=== PATIENT | female | born 2000 | race Caucasian/White ===

== ENCOUNTER 2025-07-21 14:23 | Emergency (ER) | payer MEDICAID ==
[~2025-07-21] VITALS: Ht 177.8 cm; Wt 85.0 kg
[2025-07-21 14:37] VITALS: O2SAT 100
[2025-07-21 15:41] LABS: BASOPHILS % 0.3 % (0.0-2.0); EOSINOPHILS % 1.0 % (0.0-5.0); HEMATOCRIT. 42.4 % (36.0-48.0); HEMOGLOBIN. 14.1 g/dL (12.0-16.0); LYMPHOCYTES % 26.5 % (20.0-50.0); MEAN PLATELET VOLUME 9.2 fl (7.4-10.4); MONOCYTES % 5.6 % (2.0-8.0); NEUTROPHILS % 66.6 % (40.0-76.0); PLATELET 253 x1000/uL (130-400); RED BLOOD CELL COUNT 5.40 mill/uL (4.2-5.4); RED CELL DISTRIBUTION WIDTH 15.2 % (11.6-14.6)
[2025-07-21 15:54] LABS: CREATININE 0.6 mg/dL (0.6-1.0); UREA NITROGEN BLOOD 6 mg/dL (9-23)
[2025-07-21 15:55] LABS: TROPONIN I HIGH SENSITIVITY < 4 ng/L (3.0-34)
[2025-07-21 15:56] LABS: ASPARTATE AMINOTRANSFERASE 17 IU/L (<34); BILIRUBIN DIRECT 0.1 mg/dL (<=3.0); BILIRUBIN TOTAL 0.4 mg/dL (0.1-1.0); PROTEIN TOTAL 7.2 g/dL (6.0-8.3)
[2025-07-21 15:59] LABS: INR 1.0
[2025-07-21] MEDS: SODIUM CHLORIDE 0.9% 1,000 ML IV ONE (16:10)
[2025-07-21] MEDS: METOCLOPRAMIDE HCL 10MG/2ML VIAL IV ONE (16:10)
[2025-07-21] MEDS: DIPHENHYDRAMINE 50MG/ML VIAL IV ONE (16:11)
[2025-07-21 16:46] VITALS: BP 120/88; PULSE 88; RESP 19; TEMP 37; O2SAT 100
[2025-07-21 23:35] LABS: CLARITY URINE CLOUDY (CLEAR); COLOR URINE YELLOW (YELLOW); GLUCOSE URINE NEGATIVE (NEGATIVE); KETONES URINE 3+ (NEGATIVE); LEUKOCYTE ESTERASE URINE 1+ (NEGATIVE); NITRITE URINE NEGATIVE (NEGATIVE); OCCULT BLOOD URINE TRACE (NEGATIVE); PH URINE 6.0 (4.5-8.0); PROTEIN URINE TRACE (NEGATIVE); SPECIFIC GRAVITY URINE 1.024 (1.005-1.030); UROBILINOGEN URINE 0.2 E.U./dL (0.2-1.0)
[2025-07-22 00:14] LABS: BACTERIA URINE 1+; SQUAMOUS EPITHELIAL CELL URINE 2+ /lpf (RARE/1+); WBC URINE 15-25 /hpf (0-2)
[2025-07-22 00:15] LABS: CALCIUM OXALATE CRYSTALS URINE 1+ /lpf
== END 2025-07-21 16:47 | disposition home or self-care (01) ==
LOC: ER 14:23
DX: O99.351 Diseases of the nervous system complicating pregnancy, first trimester (principal); R55 Syncope and collapse; Z3A.11 11 weeks gestation of pregnancy; Z79.899 Other long term (current) drug therapy
CPT/HCPCS: 80076; 80048; 81003; 85025; 85610; 87086; 84484; 36415; 93005; 96361; 96374; 96375; 99284; J1200; J2765; J7030; Z7610 ×2